=== PATIENT | male | born 1980 | race American Indian/Alaskan Native ===

== ENCOUNTER 2016-11-23 14:40 | Emergency (ER) | payer SELFPAY ==
[2016-11-23 15:04] VITALS: BP 137/93
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
[2016-11-23 16:02] LABS: Hematocrit 41.9 % (35.5-45.6); Hemoglobin 14.4 gm/dl (11.8-15.2); Mean Corpuscular HGB Conc 34 % (32-34); Mean Corpuscular Hemoglobin 31 pg (28-32); Mean Corpuscular Volume 89 fl (84-94); Platelet Count 323 K/mm3 (140-440); Red Blood Count 4.72 M/mm3 (3.65-5.03); Red Cell Distribution Width 14.3 % (13.2-15.2); White Blood Count 8.5 K/mm3 (4.5-11.0)
--- NOTE | 2016-11-23 16:04 | XRay Report ---
CHEST 2 VIEWS INDICATION: Left-sided chest pain for 2 days. COMPARISON: None similar at this institution. FINDINGS: PA and lateral chest radiographs demonstrate normal cardiomediastinal silhouette. Clear lungs. Thoracolumbar scoliosis. CONCLUSION: No acute disease in the chest. Scoliosis. Thank you for the opportunity to participate in this patient's care.
[2016-11-23 16:23] LABS: Anion Gap 18 mmol/L; Blood Urea Nitrogen 16 mg/dL (9-20); Calcium 9.1 mg/dL (8.4-10.2); Carbon Dioxide 24 mmol/L (22-30); Chloride 102.1 mmol/L (98-107); Glucose 87 mg/dL (75-100); Potassium 4.4 mmol/L (3.6-5.0); Sodium 140 mmol/L (137-145)
== END 2016-11-23 17:23 | disposition home or self-care (01) ==
LOC: ED 14:40
DX: M94.0 Chondrocostal junction syndrome [Tietze] (principal); R07.89 Other chest pain; M41.84 Other forms of scoliosis, thoracic region; F17.200 Nicotine dependence, unspecified, uncomplicated; Z91.030 Bee allergy status
CPT/HCPCS: 36415; 71020; 80048; 84484; 85027; 93005; 93010

== ENCOUNTER 2021-04-11 10:57 | Outpatient (CLI) | payer OTHER ==
--- NOTE | 2021-04-11 12:52 | XRay Report ---
THORACIC SPINE HISTORY: Back pain. COMPARISON: None. TECHNIQUE: 2 view(s) of the thoracic spine obtained. FINDINGS: Vertebrae: Moderate reverse S-shaped curvature of the thoracic and lumbar spine. No fracture or signi ficant abnormality. Disc Spaces:No significant abnormality. Facet Joints:No significant abnormality. Prevertebral Soft Tissues:No significant abnormality. Additional findings: None. IMPRESSION: Thoracic spine without evidence of acute osseous injury. 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 Signer Name: Joey Stovall MD Signed: 04/11/2021 12:47 PM Workstation Name: [id number]
--- NOTE | 2021-04-11 12:53 | XRay Report ---
LUMBAR SPINE HISTORY: Back pain. COMPARISON: None. TECHNIQUE: 3 view(s) of the lumbar spine obtained. FINDINGS: Vertebrae: No evidence of vertebral body fracture or subluxation. Moderate dextroconvex curvature of the lower thoracic and lumbar spine centered at T11/T12. Disc Spaces:No significant abnormality. Facet Joints:No significant abnormality. Prevertebral Soft Tissues:No significant abnormality. Additional findings: None. IMPRESSION: Lumbar spine without evidence of acute osseous injury. Partially visualized moderate dextroconvex curvature of the lower thoracic and lumbar spine centered at T11/T12. Signer Name: Joey Stovall MD Signed: 04/11/2021 12:48 PM Workstation Name: [id number]
--- NOTE | 2021-04-11 12:59 | XRay Report ---
CHEST 2 VIEWS INDICATION / CLINICAL INFORMATION: Pain.. COMPARISON: None available. FINDINGS: SUPPORT DEVICES: None. HEART / MEDIASTINUM: No significant abnormality. LUNGS / PLEURA: No significant pulmonary or pleural abnormality. No pneumothorax. ADDITIONAL FINDINGS: No significant additional findings. IMPRESSION: 1. No acute findings. Signer Name: Joey Stovall MD Signed: 04/11/2021 12:55 PM Workstation Name: [id number]
== END 2021-04-11 10:58 | disposition home or self-care (01) ==
LOC: XRAY 10:57
PROVIDERS: ATTEND Internal Medicine
DX: M47.815 Spondylosis without myelopathy or radiculopathy, thoracolumbar region (principal)
CPT/HCPCS: 71046; 72070; 72100